=== PATIENT | male | born 1985 | race Caucasian/White ===

== ENCOUNTER → 2016-11-12 | Outpatient (CLI) | payer OTHER ==
[~2016-11-12] MED LIST: ATEN-173 PO; BUPR8SUB19 SL; OXYC-57 PO
== END | disposition home or self-care (01) ==
LOC: C.RDSM 13:53
PROVIDERS: ATTEND Physical Medicine & Rehabilitation Sports Medicine
DX: M25.559 Pain in unspecified hip (principal)

== ENCOUNTER → 2016-11-23 | Outpatient (CLI) | payer OTHER ==
--- NOTE | 2016-11-23 12:37 | DIAGNOSTIC IMAGING REPORT ---
TWO VIEW CHEST CLINICAL HISTORY: Preoperative examination. FINDINGS: PA and lateral chest radiographs are obtained. No prior studies are available for comparison at the time of dictation. The cardiomediastinal silhouette is unremarkable. The lungs and pleural spaces are clear. There is no pneumothorax. The bony thorax appears intact. IMPRESSION: No active disease in the chest. Electronically signed by: Marcos Gonzalez M.D. 11/23/2016 12:36 PM Dictated Date/Time: 11/23/2016 12:36 PM
== END | disposition home or self-care (01) ==
LOC: C.RDSM 12:05
PROVIDERS: ATTEND Physician Assistant
DX: Z01.818 Encounter for other preprocedural examination (principal)

== ENCOUNTER → 2016-12-11 | Day surgery (SDC) | payer OTHER ==
[2016-11-14 14:19] VITALS: Ht 175.3 cm; Wt 60.0 kg
[2016-11-23 13:18] LABS: BASO % 0.2 %; BASO ABS # 0.01 K/uL (0-0.2); COMPLETE YES; EOS % 4.5 %; HEMATOCRIT 40.6 % (42-52); IG% 0.2 %; LYMPH % 35.7 %; LYMPH ABS # 2.15 K/uL (1.2-3.4); MEAN CELL VOLUME 90.4 fL (80-100); MEAN CORPUSCULAR HEMOGLOBIN 30.7 pg (25-34); MEAN PLATELET VOLUME 8.7 fL (7.4-10.4); MONO % 10.8 %; NEUT % 48.6 %; PLATELET COUNT 247 K/uL (130-400); RED BLOOD COUNT 4.49 M/uL (4.7-6.1); WHITE BLOOD COUNT 6.03 K/uL (4.8-10.8)
[2016-11-23 13:45] LABS: CALCIUM 8.9 mg/dl (8.5-10.1); CREATININE 0.99 mg/dl (0.60-1.40); POTASSIUM 4.2 mmol/L (3.5-5.1)
[~2016-12-11] VITALS: Ht 175.3 cm; Wt 60.0 kg
[~2016-12-11] MED LIST changes: +ACETAMINOPHEN 1000 MG/100 ML IV IV ONE; +ATROPINE SULFATE 0.1 MG/ML 5ML SYR IV PRN; +CEFAZOLIN 2000 MG/60 ML D5W IV SCH; +DEXAMETHASONE SOD INJ 4 MG/ML VIAL ONE; +EpHEDrine SULFATE INJ 50 MG/ML AMP IV PRN; +FENTANYL CITRATE INJ 50 MCG/1 ML 2 ML VIAL IV PRN; +FENTANYL CITRATE INJ 50 MCG/1 ML 2 ML VIAL ONE; +HYDROmorphone INJ 1 MG/ML SYR IV PRN; +HYDROmorphone INJ 1 MG/ML SYR ONE; +KETOROLAC TROMETHAMINE 30 MG/ML VIAL IV. PRN; +KETOROLAC TROMETHAMINE 30 MG/ML VIAL ONE; +LACTATED RINGER'S 1000ML 1,000 ML IV SCH; +LEVOFLOXACIN 500 MG TAB ONE; +LEVOFLOXACIN 500 MG TAB PO SCH; +LIDOCAINE HCL 2% 2 ML VIAL (20MG/ML) ONE; +MIDAZOLAM HCL 1 MG/ML 2ML VIAL ONE; +NURSING VERBAL MED ORDER ONE; +ONDANSETRON INJ 2 MG/ML 2 ML VIAL IV PRN; +ONDANSETRON INJ 2 MG/ML 2 ML VIAL ONE; +OXYCODONE/ACETAMINOPHEN 5-325 TAB ONE; +PHENYLEPHRINE HCL INJ 10 MG/ML VIAL ONE; +PROPOFOL IV EMULSION 10 MG/ML 20 ML VIAL IV ONE; +ROCURONIUM BROMIDE 10 MG/ML 5 ML VIAL ONE; +ROPIVACAINE 0.5% 5 MG/ML 30 ML VIAL ONE; +SODIUM CHLORIDE 0.9% 1000ML 1,000 ML IV SCH; +SODIUM CHLORIDE 0.9% INJ 10 ML VIAL ONE; +SUCCINYLCHOLINE CHLORIDE 20 MG/ML 10 ML VIAL IV ONE
--- NOTE | 2016-12-11 08:46 | History & Physical Bridge Note ---
H&P Re-Evaluation Bridge Note: I have examined the patient, reviewed the History & Physical and in the interval since the performance of the History & Physical I have noted the following changes of clinical significance: No changes noted
--- NOTE | 2016-12-11 08:48 | Discharge Instructions ---
Discharge Instructions Date of Service December 11, 2016. Visit Reason for Visit: Left Hip Cam And Labral Tears Discharge Discharge Diagnosis / Problem: same Discharge Goals Goal(s): Decrease discomfort, Improve function Medications Stopped Medications Name(s): na Restart Stopped Medication(s): use scripts as directed Activity Recommendations Activity Limitations: as noted below Lifting Limitations: until after follow-up appointment Exercise/Sports Limitations: until after follow-up appointment May Resume Sexual Activity: after follow-up appointment Shower/Bathe: keep incision dry Driving or Machine Use: resume 3 days after discharge Weightbearing Status: Left non-weightbearing Anesthesia . Post Anesthesia Instructions: If you have had General Anesthesia or IV Sedation: * Do not drive today. * Resume driving when surgeon permits. * Do not make important decisions or sign legal documents today. * Call surgeon for: 1. Temperature elevations greater than 101 degrees F. 2. Uncontrollable pain. 3. Excessive bleeding. 4. Persistent nausea and vomiting. 5. Medication intolerance (nausea, vomiting or rash). * For nausea and vomiting use only clear liquids such as: tea, soda, bouillon until nausea subsides, then gradually increase diet as tolerated. * If you have any concerns or questions, call your surgeon's office. If physician is unavailable and it is an emergency, call 911 or go to the nearest emergency room. . Instructions / Follow-Up Instructions / Follow-Up New Medicine: * You will likely be taking one or more of these medicines: 1. Percocet - Take, as directed, when you need it, every four to six hours to control your pain. 2. Iron Sulfate - Take three times each day for the month after surgery to help you replace the blood lost during surgery. 3. Coumadin - Thins your blood to lessen the chance of forming a blood clot. The dose of this is different for each person and is based on your blood tests that are done twice a week. * The most common side effects of pain medicine and iron are nausea and constipation. If nausea or constipation is too much of a problem or if you have any questions about your new medicines or doses, call [facility] at . We will try to help you manage these issues. VERY IMPORTANT TO READ AND REVIEW" Blood Clots and Blood Thinning Medicine: * You are given Coumadin during the immediate post-operative period to lessen the risk of blood clots forming in your legs and/or lungs. Coumadin is usually given for six weeks after surgery. * The prescription is for 2 mg tablets. At discharge, you should understand your dose and take it all at the same time every day, preferably after dinner. * You need to get your blood checked 1 - 2 times per week for six weeks, or as directed. * If your dose needs to change, we will call you. Do not take your medication on the day of the blood test until we call you. * If you don't hear from us after your blood draws, keep taking the same dose. Pain: * The immediate post-operative period after hip replacement surgery is often quite painful. * You are given a prescription for pain medicine. You should take it, as directed, when you need it, especially before physical therapy and before going to bed. Pain that interferes with sleep is very common and can last several months. * You will likely need pain medicine for the first two to four weeks. It will not stop all of the pain. The pain will lessen and as you feel better, you may change to milder pain medicine such as Tylenol. * The most common side effects of pain medicine are nausea and constipation, so don't take more than you need. Physical Therapy: * Follow the "Hip Precautions Instructions." * In some cases, the perinatal social worker at the hospital will arrange to have a therapist come to your house for the first couple of weeks to help you learn these skills. * You need to practice on your own or with the help of a family member as needed. * When you learn these skills, most of the therapy can be done on your own. Home Exercise: * You were shown a series of exercises in the hospital. Do these exercises three to four times each day including the exercises you were shown in physical therapy. Walking: * Get up and walk several times each day. For the first four weeks, try not to stand or walk for more than one hour at a time. If you do stand or walk for more than one hour, you will not hurt anything, but your leg will likely swell. * As you feel comfortable, you may change from the walker or crutches to a cane and then to independent walking. SELF CARE INSTRUCTIONS AFTER TOTAL HIP REPLACEMENT Until the incision and soft tissues around your hip have healed, there is a possibility that the hip prosthesis could dislocate. Steve Observe the following precautions to prevent dislocation: 1. Don't bend your hip greater than 90 degrees. 2. Avoid crossing your legs or ankles while standing or lying. 3. Sit with your feet placed 6 inches apart. 4. When sitting, keep your knees below your hips. Sit on a firm surface, avoid deep, soft chairs and couches. Use an elevated toilet seat in the bathroom. 5. Don't bend over at the waist. Use a long handled shoehorn and a sock aid to help you put on your shoes and socks. A pigs feet cleaner can help you fern picker objects that are too high or too low to reach. 6. Keep car riding to a minimum for at least one month after surgery. B. Your balance may be shaky for a while. Use crutches or a walker until directed by your doctor. C. Use hand rails when walking on stairs. D. Wear low heeled shoes with non-slip soles. E. Be sure that your floors are free of things that could trip you - throw rugs , electrical cords, small objects. Avoid wet and waxed floors, especially with crutches and canes. F. Try to walk several times a day with rest periods between. G. Continue with all the exercises taught to you in the hospital. Again, make walking a part of your daily routine. VERY IMPORTANT TO READ AND REVIEW A. Take Coumadin, or Lovenox (blood thinning medications) as directed by your doctor. If you are on Coumadin, have a pro-time (blood test) drawn according to your doctor's instructions. This will tell the doctor how well the Coumadin is thinning your blood. B. There are a few signs you need to watch for after you are home. If you notice any of the followin. Increased severe hip pain. Some pain is expected especially when you exercise. 2. Increased swelling in your leg or knee; pain or swelling of the calf muscle in either lower leg. 3. Any fluid drainage from the incision. 4. Shortness of breath or chest pain. TEDs/Elastic Stockings: * The white elastic stockings help limit swelling and prevent blood clots from forming in your legs. The more you wear them, the more they work. * Wear them for six weeks. Prevention of Infection: * Take antibiotics one hour before any dental cleaning, dental work, urological procedure, gastrointestinal procedure or any invasive surgery in order to prevent your new joint from getting infected. * You may get the antibiotics from the doctor performing the procedure or we will call in a prescription to the pharmacy of your choice. Call the office for a prescription at least 2 days prior to your appointment. Things to Watch For: * Drainage from the incision site that occurs more than one week after your surgery. * Severely increased leg pain or swelling. * Increased redness at the incision site. * Fever above 101 degrees Fahrenheit. * Unusual chest pain or shortness of breath. * Unusual pain or burning with urination. Diet Recommendations Recommended Home Diet: resume previous diet Procedures Procedures Performed: see op note Pending Studies Studies pending at discharge: no Medical Emergencies . Who to Call and When: Medical Emergencies: If at any time you feel your situation is an emergency, please call 911 immediately. . Non-Emergent Contact Non-Emergency issues call your: Specialist Call Non-Emergent contact if: temperature is above 101.5 . . "Provider Documentation" section prepared by Eladio Perez. .
--- NOTE | 2016-12-11 11:29 | [facility] Post Operative Brief Note ---
Immediate Operative Summary Operative Date December 11, 2016. Pre-Operative Diagnosis Left Hip CAM and Labral Tears Post-Operative Diagnosis SAME Procedure(s) Performed see op note Surgeon Dr. Brendan Perez Hog Feeder Surgeon(s) Dr. Anabel Casas, Jaylon Rosales PA-C Estimated Blood Loss TRACE Findings LABRAL TEAR/DJD/CAM LESION Fluids (cc crystalloids) 1900CC Specimens None Drains NONE Anesthesia GENERAL Complication(s) None Disposition Recovery Room / PACU
--- NOTE | 2016-12-11 11:47 | OPERATIVE REPORT ---
DATE OF OPERATION: 12/11/2016 PREOPERATIVE DIAGNOSIS: Chronic labral tear with impingement syndrome, left hip. POSTOPERATIVE DIAGNOSIS: Same. OPERATION PERFORMED: 1. Exam under anesthesia. 2. Diagnostic arthroscopy, left hip. 3. Arthroscopic labral repair degenerative and acute changes. 4. Modest resection of CAM lesion left femoral head. SURGEON: Dr. Perez. MACROECONOMICS PROFESSOR: Dr. John Gibbons. SECOND MACROECONOMICS PROFESSOR: Jaylon Rosales PA-C. PERIOPERATIVE SITUATION: Chronically ill male with intractable hip pain, longstanding problem is on multiple medications high risk and this was described to him in detail that he would not have a guarantee of any success. He knows he could have some numbness, weakness, etc. See OP note consent. At this point in time wanted to proceed with surgical treatment. He feels like his hip is constantly catching. OPERATION AND FINDINGS: PROCEDURE: The patient was appropriately identified, site verified, consent verified, 2 grams of Ancef confirmed as being given. The left lower extremity was confirmed that it could be placed in traction. Once that was confirmed, traction was released. Knee was then prepped and draped in usual routine fashion. Traction placed for a total of about 70 minutes. Anterior trochanteric and anterior portal made. Capsulotomy made. The joint was then entered and there was immediately seen a large inverted labral tear. This was debrided and contoured operating from both the anterior and anterior trochanteric portals then ultimately the anterior acetabulum was debrided of tissue, chondroplasty performed of the acetabulum and the labrum repaired with a 2.9 anchor with multiple sutures. This allowed the labrum to be pulled back up to the acetabular rim. This was then contoured with a thermal device. 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 Once this was done, the traction was released. The capsule was T'd but not resected and then the CAM lesion that was affecting that area was then resected using the thermal device, shaver, and power bur. Modest resection was made, did not go too large in order to prevent any type of femoral neck weakness as this individual is a user of tobacco as well. Once the CAM resection was completed, the bone dust was all evacuated with power shaver and then the traction completely released confirming that the hip was reduced. The procedure was then terminated. All instruments and fluid removed. The portals closed with 4-0 nylon, dressed with Xeroform, 4 x 4 gauze, ABD pads and Ioban dressing. The patient was then transferred to recovery room in satisfactory condition having tolerated the procedure well. Estimated blood loss trace, 1600 mL of fluid. Deep venous thrombosis prophylaxis per protocol. I attest to the content of the Intraoperative Record and any orders documented therein. Any exceptio ns are noted below.
[2016-12-11 12:37] VITALS: TEMP 37.5
--- NOTE | 2016-12-11 13:11 | Anesthesia Progress Nt - [facility] ---
Anesthesia Post Op Note Date & Time December 11, 2016 at 13:10 Vital Signs Pain Intensity: 9.0 Vital Signs Past 12 Hours Date Time Temp Pulse Resp B/P Pulse Ox O2 Delivery O2 Flow Rate FiO2 12/11/16 12:24 37.4 67 18 12/11/16 12:24 67 18 91 12/11/16 12:19 77 17 12/11/16 12:19 81 17 96 12/11/16 12:16 114/67 12/11/16 12:14 64 17 12/11/16 12:14 63 17 92 12/11/16 12:11 115/68 12/11/16 12:09 74 17 95 12/11/16 12:09 77 17 12/11/16 12:06 117/65 12/11/16 12:04 65 19 12/11/16 12:04 65 19 94 12/11/16 12:01 113/70 12/11/16 11:59 69 21 12/11/16 11:59 68 21 94 12/11/16 11:56 115/64 12/11/16 11:54 84 25 96 12/11/16 11:54 85 25 12/11/16 11:51 92/82 12/11/16 11:49 109 24 110/86 94 12/11/16 11:49 111 24 12/11/16 11:47 84/40 12/11/16 11:44 97 24 12/11/16 11:44 96 24 124/66 99 12/11/16 11:42 37.4 98 26 124/66 99 Mask 6 98 12/11/16 09:14 0 12/11/16 09:13 0 12/11/16 09:12 0 12/11/16 09:12 0 12/11/16 09:11 113/67 12/11/16 09:11 113/67 12/11/16 09:07 67 12/11/16 09:07 67 12/11/16 09:07 67 24 100 12/11/16 09:07 67 24 100 12/11/16 09:06 107/64 12/11/16 09:06 107/64 12/11/16 09:02 74 29 111/62 99 12/11/16 09:02 74 29 111/62 99 12/11/16 09:02 75 12/11/16 09:02 75 12/11/16 08:06 36.8 79 16 119/67 98 Room Air Notes Mental Status: alert / awake / arousable, participated in evaluation Pt Amnestic to Procedure: Yes Nausea / Vomiting: adequately controlled Pain: improving with treatment Airway Patency, RR, SpO2: stable & adequate BP & HR: stable & adequate Hydration State: stable & adequate Anesthetic Complications: no major complications apparent
[2016-12-11 14:00] VITALS: BP 106/66; PULSE 63; O2SAT 97
--- NOTE | 2016-12-11 20:14 | OPERATIVE REPORT ---
PREOPERATIVE DIAGNOSIS: Left hip chronic labral tear with impingement syndrome. POSTOPERATIVE DIAGNOSIS: Left hip same. PROCEDURES: Left hip arthroscopy, labral repair and resection of Cam lesion. SURGEON: Dr. Perez. ANTIQUER: Dr. John Gibbons. SECOND ANTIQUER: Jaylon Rosales PA-C. HISTORY OF PRESENT ILLNESS: This 31-year-old white male presented to the office with complaints of intractable hip pain that has been going on for many years. He had tried conservative care measures without success. He elected to proceed with surgical intervention in hopes of alleviating his pain. OPERATION: The patient was taken to the operating room where he was administered general anesthetic. He was prepped and draped in the usual sterile fashion. Please see Dr. Perez's operative report for specifics of the procedure. I was present for the entire case from initial patient positioning through final wound closure. Assistance was provided in patient positioning, arthroscopy, hardware placement, and final wound closure. The patient was taken to the recovery room in satisfactory condition.
== END | disposition home or self-care (01) ==
LOC: X.SURG 07:48
PROVIDERS: ATTEND Physical Medicine & Rehabilitation Sports Medicine
DX: M24.152 Other articular cartilage disorders, left hip (principal); M25.852 Other specified joint disorders, left hip; F17.200 Nicotine dependence, unspecified, uncomplicated; Z98.890 Other specified postprocedural states; M19.90 Unspecified osteoarthritis, unspecified site